=== PATIENT | male | born 1990 | race Two or more races ===

== ENCOUNTER 2020-04-23 05:22 | Emergency (ER) | payer OTHER ==
[~2020-04-23] VITALS: Ht 198.1 cm; Wt 99.8 kg
[2020-04-23] MEDS ORDERED: KEFLEX500 MG PO (06:22)
== END 2020-04-23 06:37 | disposition home or self-care (01) ==
LOC: ER 05:22
DX: S90.812A Abrasion, left foot, initial encounter (principal); W22.8XXA Striking against or struck by other objects, initial encounter
CPT/HCPCS: 99283